=== PATIENT | female | born 1970 | race Caucasian/White ===

== ENCOUNTER 2019-04-11 07:18 | Emergency (ER) | payer BC ==
[2019-04-11 07:34] VITALS: BP 115/74
--- NOTE | 2019-04-11 08:11 | UC ---
Skin Complaint HPI - HPI Summary HPI Summary: 48-year-old woman comes in with a chief complaint of a rash. Started about a week ago on her right arm after she been outside and she is concerned it's probably poison tresa. Since then it spread onto both arms and legs. It is itchy there's been vesicles that are broken. Slightly raised. Feels well otherwise. She's tried some calamine lotion which helps minimally the rash is continuing to spread. - History of Current Complaint Chief Complaint: UCRash Time Seen by Provider: 04/11/19 08:05 Stated Complaint: POISON TRESA Hx Last Menstrual Period: 04/05/19 Pain Intensity: 2 - Allergy/Home Medications Allergies/Adverse Reactions: Allergies Allergy/AdvReac Type Severity Reaction Status Date / Time Sulfa (Sulfonamide Allergy Intermediate Rash Verified 04/11/19 07:35 Antibiotics) PMH/Surg Hx/FS Hx/Imm Hx Previously Healthy: Yes - Surgical History Surgical History: Yes Surgery Procedure, Year, and Place: 2008 - Family History Known Family History: Positive: Non-Contributory - Social History Alcohol Use: Weekly Substance Use Type: None Smoking Status (MU): Never Smoked Tobacco Review of Systems All Other Systems Reviewed And Are Negative: Yes Constitutional: Positive: Negative Skin: Positive: Other - SEE HPI Eyes: Positive: Negative ENT: Positive: Negative Respiratory: Positive: Negative Cardiovascular: Positive: Negative Gastrointestinal: Positive: Negative Motor: Positive: Negative Neurovascular: Positive: Negative Musculoskeletal: Positive: Negative Neurological: Positive: Negative Psychological: Positive: Negative Is Patient Immunocompromised?: No Physical Exam Triage Information Reviewed: Yes Appearance: Well-Appearing, No Pain Distress, Well-Nourished Vital Signs: Initial Vital Signs Temp 98.3 F 04/11/19 07:27 Pulse 78 04/11/19 07:27 Resp 18 04/11/19 07:27 BP 115/74 04/11/19 07:27 Pulse Ox 100 04/11/19 07:27 Vital Signs Reviewed: Yes Eye Exam: Normal Eyes: Positive: Conjunctiva Clear Neck: Positive: Supple Respiratory: Positive: No respiratory distress Musculoskeletal: Positive: Strength Intact, ROM Intact Neurological: Positive: Muscle Tone Normal Psychological: Positive: Age Appropriate Behavior Skin: Positive: Other - Patient has scattered erythematous rash in patches 1 cm to 4 cm in diameter on both arms and legs. It slightly raised. No drainage. Course/Dx - Diagnoses Provider Diagnosis: Contact dermatitis Discharge - Sign-Out/Discharge Documenting (check all that apply): Patient Departure All imaging exams completed and their final reports reviewed: No Studies - Discharge Plan Condition: Stable Disposition: HOME Prescriptions: predniSONE TAB* [Deltasone 20 MG TAB*] 40 mg PO DAILY #10 tab Patient Education Materials: Poison Tresa (ED) Referrals: Romina Garcia MD [Primary Care Provider] - Additional Instructions: FOLLOW UP WITH YOUR DOCTOR IF NOT COMPLETELY IMPROVED. GET RECHECKED SOONER IF YOUR CONDITION WORSENS OR ANY QUESTIONS OR CONCERNS. - Billing Disposition and Condition Condition: STABLE Disposition: Home
== END 2019-04-11 08:17 | disposition home or self-care (01) ==
LOC: UCEAST 07:18
DX: L25.9 Unspecified contact dermatitis, unspecified cause (principal)
CPT/HCPCS: 99212; G0463

== ENCOUNTER 2019-08-04 03:04 | Emergency (ER) | payer BC ==
[2019-08-04] MEDS ORDERED: Ketorolac INJ* 15 MG/ML 1 ML VIAL IV ONE (03:19)
[2019-08-04] MEDS ORDERED: Ondansetron INJ* 2 MG/ML VIAL IV ONE (03:19)
[2019-08-04] MEDS ORDERED: NS 0.9% 1000 ML** 1,000 ML IV ONE (03:19)
[2019-08-04 03:45] LABS: ABS Basophils 0.1 10^3/ul (0-0.2); ABS Eosinophils 0.1 10^3/ul (0-0.6); ABS Lymphocytes 0.9 10^3/ul (1.0-4.8); ABS Monocytes 0.8 10^3/ul (0-0.8); ABS Neutrophils 12.3 10^3/ul (1.5-7.7); Eosinophil % 0.7 %; Hematocrit 37 % (35-47); Hemoglobin 12.9 g/dL (12.0-16.0); Lymphocyte % 6.5 %; Mean Corpuscular HGB Conc 35 g/dL (31-36); Mean Corpuscular Hemoglobin 33 pg (27-31); Mean Corpuscular Volume 94 fL (80-97); Platelet Count 311 10^3/uL (150-450); Red Blood Count 3.94 10^6 /uL (3.70-4.87); Red Cell Distribution Width 12 % (10-15); White Blood Count 14.2 10^3/uL (3.5-10.8)
[2019-08-04 03:50] LABS: INR 0.94 (0.82-1.09)
--- NOTE | 2019-08-04 03:50 | ED ---
Abdominal Pain/Female - HPI Summary HPI Summary: The patient is a 48 y/o F presenting to [facility] with a chief complaint of sudden onset RUQ and right flank pain radiating into the right back beginning around 0000 this morning. She reports that she has since developed nausea with vomiting , and she has had multiple normal BMs since waking up with the pain. She denies any fever or diarrhea. Currently, the pain is rated 9/10 in severity. There are no aggravating or alleviating factors. PMHx: kidney stones, cholecystectomy. Nonsmoker, weekly EtOH, no substance use. Medications reviewed. Allergies noted. - History of Current Complaint Chief Complaint: EDAbdPain Stated Complaint: ABD PAIN PER PT Time Seen by Provider: 08/04/19 03:19 Hx Obtained From: Patient Hx Last Menstrual Period: 04/05/19 Onset/Duration: Sudden Onset, Lasting Hours - since 0000, Still Present Timing: Hours Severity Initially: Moderate Severity Currently: Severe Pain Intensity: 9 Pain Scale Used: 0-10 Numeric Location: Discrete At: RUQ Radiates: Yes Radiates to: Back - right, Flank - right Character: Dull Aggravating Factor(s): Nothing Alleviating Factor(s): Nothing Associated Signs and Symptoms: Positive: Back Pain, Nausea, Vomiting. Negative : Fever, Diarrhea Allergies/Adverse Reactions: Allergies Allergy/AdvReac Type Severity Reaction Status Date / Time Sulfa (Sulfonamide Allergy Intermediate Rash Verified 08/04/19 03:09 Antibiotics) PMH/Surg Hx/FS Hx/Imm Hx Endocrine/Hematology History: Denies: Hx Diabetes, Hx Thyroid Disease Cardiovascular History: Denies: Hx Hypertension Respiratory History: Denies: Hx Asthma, Hx Chronic Obstructive Pulmonary Disease (COPD) GI History: Denies: Hx Ulcer History: Reports: Hx Kidney Stones - Surgical History Surgical History: Yes Surgery Procedure, Year, and Place: 2008 - Immunization History Immunizations Up to Date: Yes Infectious Disease History: No Infectious Disease History: Denies: Hx Hepatitis, Hx Human Immunodeficiency Virus (HIV), Traveled Outside the [place] in Last 30 Days - Family History Known Family History: Negative: Hypertension - Social History Alcohol Use: Weekly Hx Substance Use: No Substance Use Type: Reports: None Hx Tobacco Use: No Smoking Status (MU): Never Smoked Tobacco Review of Systems - ROS Summary Review of Systems Summary: Home Medications Medication Instructions Recorded Confirmed Type predniSONE TAB* [Deltasone 20 MG 40 mg PO DAILY #10 tab 04/11/19 Rx TAB*] Negative: Fever Positive: Abdominal Pain - RUQ, Vomiting, Nausea. Negative: Diarrhea Positive: flank pain - right Positive: Other - right low back pain All Other Systems Reviewed And Are Negative: Yes Physical Exam - Summary Physical Exam Summary: General: Well-developed, Well-nourished female. Mild acute discomfort. HEENT: Normocephalic, Atraumatic. Eyes: Conjuctiva normal, PERRL. Ears: TMs within normal limits. Nares: (-) discharge, (-) erythema. Oropharynx: Clear, mucous membranes moist, (-) exudates. Neck: Soft, FROM, (-) lymphadenopathy, (-) thyromegaly, (-) JVD. Cardiovascular: Normal sinus rhythm, (-) murmur. Lungs: Clear to auscultation bilaterally (-) wheezes, (-) rales, (-) rhonchi. Abdomen: Soft, mild RUQ tenderness to palpation, non-distended, (-) organomegaly , normal bowel sounds. Back: (-) CVA tenderness Extremities: No edema. Skin: Warm, dry, (-) rash. Neuro: Alert and oriented x3, no focal deficits. Psychiatric: Mood normal, affect normal. Triage Information Reviewed: Yes Vital Signs On Initial Exam: Initial Vitals Temp Pulse Resp BP Pulse Ox 97.7 F 79 18 153/85 100 08/04/19 03:06 08/04/19 03:06 08/04/19 03:06 08/04/19 03:06 08/04/19 03:06 Vital Signs Reviewed: Yes Procedures - Sedation Patient Received Moderate/Deep Sedation with Procedure: No Diagnostics - Vital Signs Vital Signs Temp Pulse Resp BP Pulse Ox 08/04/19 03:06 97.7 F 79 18 153/85 100 - Laboratory Result Diagrams: 08/04/19 03:37 08/04/19 03:37 Lab Statement: Any lab studies that have been ordered have been reviewed, and results considered in the medical decision making process. - CT Abdominopelvic CT CT Interpretation Completed By: Radiologist Summary of CT Findings: Impression: There is a 5mm calculus noted in the proximal right ureter with associated moderate hydronephrosis and surrounding perinephric fat stranding. ED physician has reviewed this report. Re-Evaluation - Re-Evaluation First Eval Re-Evaluation Time: 05:55 Change: Improved Comment: We discussed all findings thus far. She will be administered Percocet, and if she is able to tolerate it PO, she will be clear for discharge. Second Eval Re-Evaluation Time: 06:30 Change: Improved Comment: Her pain has improved, and we discussed plan for discharge home with urology follow up. Abdominal Pain Fem Course/Dx - Course Course Of Treatment: 48-year-old female with flank pain. History of kidney stones. Significant improvement with her pain initially with Toradol and IV fluids.. Pain returned and patient had improvement with Percocet. CAT scan demonstrated nephrolithiasis, 5 mm stone. Patient discharged to home. Follow up with urology. Drink plenty of fluids. Take ibuprofen or Percocet as needed. - Diagnoses Provider Diagnoses: Nephrolithiasis Discharge ED - Sign-Out/Discharge Documenting (check all that apply): Patient Departure - Pt will be discharged home. - Discharge Plan Condition: Improved Disposition: HOME Prescriptions: oxyCODONE/Acetamin 5/325 MG* [Percocet 5/325 TAB*] 1 tab PO Q4H PRN #28 tab MDD 6 PRN Reason: Pain-Severe/Temp >/= 100.4 Tamsulosin CAP* [Flomax CAP*] 0.4 mg PO DAILY 14 Days #14 cap Patient Education Materials: Kidney Stones (ED) Referrals: Romina Garcia MD [Primary Care Provider] - 3 Days Ritchie Sheikh MD [Medical Doctor] - 3 Days Additional Instructions: Please take medications as prescribed. Please follow up with urology and your primary care physician within three days. Please return to ED for any new or worsening symptoms. - Billing Disposition and Condition Condition: IMPROVED Disposition: Home - Attestation Statements Document Initiated by Scribe: Yes Documenting Scribe: Bianca Jordan Provider For Whom Sidney is Documenting (Include Credential): Dr. Viktoria Yee MD Scribe Attestation: Bianca Murray scribed for Dr. Viktoria Yee MD on 08/05/19 at 2052. Scribe Documentation Reviewed: Yes Provider Attestation: The documentation as recorded by the Bianca verdin accurately reflects the service I personally performed and the decisions made by me, Dr. Viktoria Yee MD Status of Scribe Document: Viewed
[2019-08-04 04:08] LABS: ALT 13 U/L (7-52); AST 14 U/L (13-39); Albumin 4.1 g/dL (3.2-5.2); Albumin/Globulin Ratio 1.6 (1-3); Alkaline Phosphatase 26 U/L (34-104); Anion Gap 7 mmol/L (2-11); BUN/Creatinine Ratio 21.4 (8-20); Blood Urea Nitrogen 22 mg/dL (6-24); C Reactive Protein 1.83 mg/L (<8.01); CO2 Carbon Dioxide 25 mmol/L (22-32); Calcium 9.4 mg/dL (8.6-10.3); Chloride 104 mmol/L (101-111); EGFR African American 68.9 (>60); Globulin 2.6 g/dL (2-4); Glucose 131 mg/dL (70-100); Potassium 3.7 mmol/L (3.5-5.0); Sodium 136 mmol/L (135-145); Total Protein 6.7 g/dL (6.4-8.9)
[2019-08-04 04:15] LABS: HCG Pregnancy < 0.60 mIU/mL
[2019-08-04 04:25] LABS: Urine Appearance Turbid; Urine Bacteria Absent (Absent); Urine Bilirubin Negative (Negative); Urine Blood 3+ (Negative); Urine Color Amber; Urine Glucose Negative (Negative); Urine Ketones 1+ (Negative); Urine Nitrite Negative (Negative); Urine Protein 2+(100 mg/dL) (Negative); Urine Red Blood Cell 3+(>10/hpf) (Absent); Urine Specific Gravity 1.021 (1.010-1.030); Urine Squamous Epithelial Cell Present (Absent); Urine Urobilinogen Negative (Negative); Urine White Blood Cell 3+(>20/hpf) (Absent)
[2019-08-04] MEDS ORDERED: Iodixanol* (CONTRAST) 320 MG/ML 100 ML SDV IV ONE (04:56)
[2019-08-04] MEDS ORDERED: oxyCODONE/Acetamin 5/325 MG* TAB PO ONE (05:57)
[2019-08-04] MEDS ORDERED: Tamsulosin CAP* 0.4 MG PO ONE (06:31)
[2019-08-04 07:32] VITALS: BP 108/63
== END 2019-08-04 07:05 | disposition home or self-care (01) ==
LOC: ED 03:04
DX: N13.2 Hydronephrosis with renal and ureteral calculous obstruction (principal); Z79.899 Other long term (current) drug therapy; Z88.2 Allergy status to sulfonamides
CPT/HCPCS: 36415; 74177; 80053; 81003; 81015; 83605; 83690; 84702; 85025; 85610; 86140; 87086; 96361; 96374; 96375; 99283; A9270-GY; J1885; J2405; Q9967